=== PATIENT | female | born 1950 | race Caucasian/White ===

== ENCOUNTER → 2017-02-20 | Outpatient (CLI) | payer MEDICARE, OTHER ==
[2014-11-02 15:33] VITALS: BP 124/72
[~2017-02-20] MED LIST: AMLO10TA2 PO; ASPI325T70 PO; BUSP15TA PO; CIPR500T PO; FURO-68 PO; GABA600T2 PO; HYDR-2165 PO; HYDR1TAB PO; HYDROCORTISONE28 G1 TP; INSU100I17 SQ; INSU100V8 SQ; LEVO150T5 PO; LISI-334 PO; MECL12.52 PO; MELO-150 PO; METO-269 PO; POLY17PO29 PO; PROM25TA10 PO; ROPI4TAB6 PO; SEA-OMEGA 50 C1 EACH PO; SERT100T PO; SERT100T8 PO; SIMV40TA3 PO; TRAZ50TA15 PO; TRIM100T13 PO; VALP250C2 PO; VENL150C6 PO; ZOLP10TA PO
== END | disposition home or self-care (01) ==
LOC: PMGWOUND 13:27
PROVIDERS: ATTEND Emergency Medicine Undersea and Hyperbaric Medicine
DX: T87.89 Other complications of amputation stump (principal); E11.622 Type 2 diabetes mellitus with other skin ulcer; L97.221 Non-pressure chronic ulcer of left calf limited to breakdown of skin; L89.893 Pressure ulcer of other site, stage 3; L89.323 Pressure ulcer of left buttock, stage 3; I10 Essential (primary) hypertension; F31.9 Bipolar disorder, unspecified; E11.69 Type 2 diabetes mellitus with other specified complication; M86.9 Osteomyelitis, unspecified; F17.210 Nicotine dependence, cigarettes, uncomplicated; Y83.5 Amputation of limb(s) as the cause of abnormal reaction of the patient, or of later complication, without mention of misadventure at the time of the procedure
CPT/HCPCS: 97597

== ENCOUNTER → 2017-03-06 | Outpatient (CLI) | payer MEDICARE, OTHER ==
[2014-11-02 15:33] VITALS: BP 124/72
[~2017-03-06] MED LIST changes: -MELO-150 PO; +MELO15TA23 PO
== END | disposition home or self-care (01) ==
LOC: PMGWOUND 13:32
PROVIDERS: ATTEND Emergency Medicine Undersea and Hyperbaric Medicine
DX: L89.893 Pressure ulcer of other site, stage 3 (principal); L89.322 Pressure ulcer of left buttock, stage 2; F31.9 Bipolar disorder, unspecified; I10 Essential (primary) hypertension; E11.69 Type 2 diabetes mellitus with other specified complication; M86.9 Osteomyelitis, unspecified; M19.90 Unspecified osteoarthritis, unspecified site; F17.210 Nicotine dependence, cigarettes, uncomplicated
CPT/HCPCS: 82962; 99214

== ENCOUNTER → 2017-03-20 | Outpatient (CLI) | payer MEDICARE, OTHER ==
[2014-11-02 15:33] VITALS: BP 124/72
== END | disposition home or self-care (01) ==
LOC: PMGWOUND 13:15
PROVIDERS: ATTEND Emergency Medicine Undersea and Hyperbaric Medicine
DX: E11.622 Type 2 diabetes mellitus with other skin ulcer (principal); L89.893 Pressure ulcer of other site, stage 3; F31.9 Bipolar disorder, unspecified; I10 Essential (primary) hypertension; E11.69 Type 2 diabetes mellitus with other specified complication; M86.9 Osteomyelitis, unspecified; M19.90 Unspecified osteoarthritis, unspecified site; F17.210 Nicotine dependence, cigarettes, uncomplicated; Z90.710 Acquired absence of both cervix and uterus; Z89.512 Acquired absence of left leg below knee
CPT/HCPCS: 99213

== ENCOUNTER → 2017-04-03 | Outpatient (CLI) | payer OTHER ==
[2014-11-02 15:33] VITALS: BP 124/72
== END | disposition home or self-care (01) ==
LOC: PMGWOUND 12:19
PROVIDERS: ATTEND Emergency Medicine Undersea and Hyperbaric Medicine
DX: T87.89 Other complications of amputation stump (principal); E11.622 Type 2 diabetes mellitus with other skin ulcer; L97.221 Non-pressure chronic ulcer of left calf limited to breakdown of skin; L89.322 Pressure ulcer of left buttock, stage 2; L89.893 Pressure ulcer of other site, stage 3; I10 Essential (primary) hypertension; M19.90 Unspecified osteoarthritis, unspecified site; F31.9 Bipolar disorder, unspecified; E11.69 Type 2 diabetes mellitus with other specified complication; M86.68 Other chronic osteomyelitis, other site; F17.210 Nicotine dependence, cigarettes, uncomplicated; Y83.5 Amputation of limb(s) as the cause of abnormal reaction of the patient, or of later complication, without mention of misadventure at the time of the procedure
CPT/HCPCS: 99214

== ENCOUNTER → 2017-04-17 | Outpatient (CLI) | payer OTHER ==
[2014-11-02 15:33] VITALS: BP 124/72
== END | disposition home or self-care (01) ==
LOC: PMGWOUND 12:52
PROVIDERS: ATTEND Emergency Medicine Undersea and Hyperbaric Medicine
DX: T87.89 Other complications of amputation stump (principal); E11.622 Type 2 diabetes mellitus with other skin ulcer; L97.221 Non-pressure chronic ulcer of left calf limited to breakdown of skin; L89.322 Pressure ulcer of left buttock, stage 2; L98.411 Non-pressure chronic ulcer of buttock limited to breakdown of skin; L89.893 Pressure ulcer of other site, stage 3; L98.491 Non-pressure chronic ulcer of skin of other sites limited to breakdown of skin; B02.9 Zoster without complications; F17.210 Nicotine dependence, cigarettes, uncomplicated; E11.69 Type 2 diabetes mellitus with other specified complication; M86.68 Other chronic osteomyelitis, other site; M19.90 Unspecified osteoarthritis, unspecified site; Y83.5 Amputation of limb(s) as the cause of abnormal reaction of the patient, or of later complication, without mention of misadventure at the time of the procedure
CPT/HCPCS: 97597

== ENCOUNTER → 2017-05-01 | Outpatient (CLI) | payer OTHER ==
[2014-11-02 15:33] VITALS: BP 124/72
== END | disposition home or self-care (01) ==
LOC: PMGWOUND 13:00
PROVIDERS: ATTEND Emergency Medicine Undersea and Hyperbaric Medicine
DX: T87.89 Other complications of amputation stump (principal); E11.622 Type 2 diabetes mellitus with other skin ulcer; L97.821 Non-pressure chronic ulcer of other part of left lower leg limited to breakdown of skin; L98.411 Non-pressure chronic ulcer of buttock limited to breakdown of skin; L89.323 Pressure ulcer of left buttock, stage 3; L89.893 Pressure ulcer of other site, stage 3; B02.9 Zoster without complications; I10 Essential (primary) hypertension; M19.90 Unspecified osteoarthritis, unspecified site; F31.9 Bipolar disorder, unspecified; E11.69 Type 2 diabetes mellitus with other specified complication; M86.68 Other chronic osteomyelitis, other site; F17.210 Nicotine dependence, cigarettes, uncomplicated; Z85.41 Personal history of malignant neoplasm of cervix uteri; Y83.5 Amputation of limb(s) as the cause of abnormal reaction of the patient, or of later complication, without mention of misadventure at the time of the procedure
CPT/HCPCS: 82962; 97597

== ENCOUNTER → 2017-05-10 | Outpatient (CLI) | payer OTHER ==
[2014-11-02 15:33] VITALS: BP 124/72
[2017-05-10 13:11] LABS: ALBUMIN 3.2 g/dL (3.4-5.0); ALBUMIN/GLOBULIN RATIO 0.7 (1.0-1.7); CALCIUM 9.4 mg/dL (8.5-10.1); CREATININE 0.8 mg/dL (0.6-1.0); GFR 71.3; POTASSIUM 4.2 mmol/L (3.5-5.1); TOTAL BILIRUBIN 0.3 mg/dL (0.2-1.0); TOTAL PROTEIN 7.7 g/dL (6.4-8.2)
== END | disposition home or self-care (01) ==
LOC: PMGWOUND 10:50
PROVIDERS: ATTEND Emergency Medicine Undersea and Hyperbaric Medicine
DX: T87.89 Other complications of amputation stump (principal); E11.621 Type 2 diabetes mellitus with foot ulcer; L97.511 Non-pressure chronic ulcer of other part of right foot limited to breakdown of skin; E11.622 Type 2 diabetes mellitus with other skin ulcer; L89.893 Pressure ulcer of other site, stage 3; L98.491 Non-pressure chronic ulcer of skin of other sites limited to breakdown of skin; L89.323 Pressure ulcer of left buttock, stage 3; L98.411 Non-pressure chronic ulcer of buttock limited to breakdown of skin; L97.221 Non-pressure chronic ulcer of left calf limited to breakdown of skin; B02.9 Zoster without complications; F31.9 Bipolar disorder, unspecified; I10 Essential (primary) hypertension; E11.69 Type 2 diabetes mellitus with other specified complication; M86.68 Other chronic osteomyelitis, other site; M19.90 Unspecified osteoarthritis, unspecified site; F17.210 Nicotine dependence, cigarettes, uncomplicated; Z85.41 Personal history of malignant neoplasm of cervix uteri; Z90.710 Acquired absence of both cervix and uterus; Y83.5 Amputation of limb(s) as the cause of abnormal reaction of the patient, or of later complication, without mention of misadventure at the time of the procedure
CPT/HCPCS: 11042; 36415; 80053; 84134

== ENCOUNTER → 2017-12-18 | Outpatient (CLI) | payer OTHER | END | disposition home or self-care (01) | LOC: KCIC 13:36 | DX: M16.0 Bilateral primary osteoarthritis of hip (principal); G89.29 Other chronic pain | CPT/HCPCS: 73521 ==